=== PATIENT | male | born 1980 | race Caucasian/White ===

== ENCOUNTER 2018-09-17 16:00 | Emergency (ER) | payer BC ==
[~2018-09-17] VITALS: Ht 177.8 cm; Wt 134.0 kg
[2018-09-17 16:33] VITALS: BP 179/111; PULSE 102; RESP 18; Ht 177.8 cm; Wt 134.0 kg
[2018-09-17] MEDS ORDERED: HYDR25TA6 PO (18:01)
[2018-09-17] MEDS ORDERED: LISI-313 PO (18:01)
--- NOTE | 2018-09-17 18:03 | ERD ---
ER Documentation Chief Complaint Chief Complaint htn non complaint with meds, needs medication refil HPI Very pleasant 38-year-old gentleman who presents for medication refill. The patient has a known history of long-standing hypertension but has been not taking medications for greater than 1 year. He recently moved to the area. He noticed that his blood pressure was in the 180s and presents for medication refill. He denies any headache chest pain or shortness of breath. He states that he used to take atenolol lisinopril and hydrochlorothiazide but does not know the dosing. ROS All systems reviewed and are negative except as per history of present illness. Medications Home Meds Active Scripts Lisinopril* (Lisinopril*) 5 Mg Tablet, 5 MG PO DAILY, #30 TAB Prov:SIMBA SALMERON MD 09/17/18 Hydrochlorothiazide* (Hydrochlorothiazide*) 25 Mg Tab, 25 MG PO DAILY, #30 TAB Prov:SIMBA SALMERON MD 09/17/18 Allergies Allergies: Coded Allergies: No Known Allergy (Unverified , 09/17/18) PMhx/Soc Medical and Surgical Hx: pt denies Surgical Hx Hx Cardiac Disorders: Yes (htn ) Hx Alcohol Use: No Hx Substance Use: No Hx Tobacco Use: No Smoking Status: Never smoker FmHx Family History: No diabetes Physical Exam Vitals Vital Signs Date Temp Pulse Resp B/P (MAP) Pulse Ox O2 O2 Flow FiO2 Time Delivery Rate 09/17/18 98.3 102 18 179/111 98 16:33 (133) Physical Exam General: Well developed, well nourished, no acute distress Head: Normocephalic, atraumatic. Eyes: EOM intact ENT: Moist mucous membranes Neck: Full ROM Respiratory: No respiratory distress Cardiovascular: Well perfused distally Abdominal: Nondistended : Deferred MSK: No edema, no unilateral swelling, 5/5 strength Neurologic: Alert and oriented, moving all extremities, normal speech, steady gait Skin: No rash Psych: Normal mood Procedures/MDM Patient presents with asymptomatic hypertension. The patient will benefit from reinitiation of his antihypertensive medications. I hesitate to start him on all 3 of them that he has been noncompliant for greater than 1 year. I will reinitiate hydrochlorothiazide and lisinopril. He states that he is making a primary care appointment tomorrow. Return precautions were discussed and understood. No clinical signs or symptoms concerning for endorgan dysfunction. No indication for laboratory testing, EKG or diagnostic imaging. The patient does not have an identifiable emergent medical condition that warrants inpatient hospitalization at this time. The patient is deemed safe for discharge with outpatient follow-up. We discussed follow up with the patient's primary care doctor within 24 to 48 hours as needed. We also discussed return to the emergency room for worsening symptoms or worsening condition. Outpatient referral: None required Discharge Medications: Lisinopril 5 once daily Hydrochlorothiazide 25 once daily Departure Diagnosis: Primary Impression: Asymptomatic hypertension Additional Impression: Encounter for medication refill Condition: Stable Patient Instructions: High Blood Pressure (Hypertension) Referrals: COMM[facility] YOU HAVE RECEIVED A MEDICAL SCREENING EXAM AND THE RESULTS INDICATE THAT YOU DO NOT HAVE A CONDITION THAT REQUIRES URGENT TREATMENT IN THE EMERGENCY DEPARTMENT. FURTHER EVALUATION AND TREATMENT OF YOUR CONDITION CAN WAIT UNTIL YOU ARE SEEN IN YOUR DOCTORS OFFICE WITHIN THE NEXT 1-2 DAYS. IT IS YOUR RESPONSIBILITY TO MAKE AN APPOINTMENT FOR FOLOW-UP CARE. IF YOU HAVE A PRIMARY DOCTOR --you should call your primary doctor and schedule an appointment IF YOU DO NOT HAVE A PRIMARY DOCTOR YOU CAN CALL OUR PHYSICIAN REFERRAL HOTLINE AT IF YOU CAN NOT AFFORD TO SEE A PHYSICIAN YOU CAN CHOSE FROM THE FOLLOWING [facility] [address] [facility]. [facility] [address] [facility]. [facility] [address] [facility] [facility] [address] [facility] [facility] [address] [facility]. [facility]. [address] [facility]. [facility] YOU HAVE RECEIVED A MEDICAL SCREENING EXAM AND THE RESULTS INDICATE THAT YOU DO NOT HAVE A CONDITION THAT REQUIRES URGENT TREATMENT IN THE EMERGENCY DEPARTMENT. FURTHER EVALUATION AND TREATMENT OF YOUR CONDITION CAN WAIT UNTIL YOU ARE SEEN IN YOUR DOCTORS OFFICE WITHIN THE NEXT 1-2 DAYS. IT IS YOUR RESPONSIBILITY TO MAKE AN APPOINTMENT FOR FOLOW-UP CARE. IF YOU HAVE A PRIMARY DOCTOR --you should call your primary doctor and schedule and appointment IF YOU DO NOT HAVE A PRIMARY DOCTOR YOU CAN CALL OUR PHYSICIAN REFERRAL HOTLINE AT . IF YOU CAN NOT AFFORD TO SEE A PHYSICIAN YOU CAN CHOSE FROM THE FOLLOWING [facility] INSTITUTIONS: [facility] [address] [place] [address] [facility] [address] [place] [address] [facility] + [facility] [address] [place] [address] Additional Instructions: Call your primary care doctor TOMORROW for an appointment during the next 1 WEEK.Tell the police department secretary that you were referred from this facility.See the doctor sooner or return here if your condition worsens before your appointment time. SIMBA SALMERON MD Sep 17, 2018 18:03
== END 2018-09-17 18:22 | disposition home or self-care (01) ==
LOC: E/R 16:00
DX: I10 Essential (primary) hypertension (principal); Z76.0 Encounter for issue of repeat prescription
CPT/HCPCS: 99281